=== PATIENT | male | born 1960 | race Caucasian/White ===

== ENCOUNTER 2024-03-11 20:00 | Emergency (ER) | payer BC, SELFPAY ==
[2024-03-11 20:06] VITALS: BP 195/106
[2024-03-11 20:25] LABS: % Basophils 0.7 % (0-2); % Eosinophils 4.9 % (0-6); % Immature Granulocytes 0.4 % (0-0.5); % Lymphocytes 23.3 % (20.5-51.1); % Neutrophils 63.7 % (42.2-75.2); Absolute Basophils 0.1 10^3/uL (0-0.2); Absolute Eosinophils 0.7 10^3/uL (0-0.7); Absolute Immature Granulocytes 0.1 10^3/uL (0-0.05); Absolute Lymphocytes 3.2 10^3/uL (1.2-3.4); Absolute Neutrophils 8.8 10^3/uL (1.4-6.5); Hematocrit 45.2 % (39.0-52.0); Hemoglobin 15.8 g/dL (13.0-18.0); Mean Corpuscular Hgb 31.7 pg (27.0-31.0); Mean Corpuscular Volume 90.6 fL (80.0-94.0); Mean Platelet Volume 10.1 fL (7.4-10.4); Nucleated Red Blood Cells % 0 % (-); Platelet Count 329 10^3/uL (130-400); Red Blood Cell Count 4.99 10^6/uL (4.70-6.10); Red Cell Dist. Width 13.2 % (11.5-14.5); White Blood Cell Count 13.8 10^3/uL (4.8-10.8)
[2024-03-11 20:40] LABS: ALT (SGPT) 72 U/L (0-50); AST (SGOT) 47 U/L (17-59); Alkaline Phosphatase 80 U/L (38-126); Blood Urea Nitrogen 13 mg/dl (9-20); Calcium 10.2 mg/dl (8.4-10.2); Carbon Dioxide 24 mmol/L (22-30); Chloride 101 mmol/L (98-107); Glucose 97 mg/dl (70-99); Potassium 4.4 mmol/L (3.5-5.1); Sodium 139 mmol/L (135-145); Total Bilirubin 0.7 mg/dl (0.2-1.3); Total Protein 8.1 g/dl (6.3-8.2); eGFR > 60.00
[2024-03-11 20:46] LABS: Troponin I < 0.012 ng/ml
[2024-03-11 22:24] VITALS: BP 160/85
[2024-03-11 23:00] VITALS: BP 139/75
--- NOTE | 2024-03-11 23:30 | ED.GENMED ---
History of Present Illness
<Kylie Leiva MD, Resident - Last Filed: 03/12/24 00:01>
General
Chief Complaint: Chest Pain
Time Seen by Provider: 03/11/24 22:35
History of Present Illness
History of Present Illness:
63 y/o male with pmhx of HTN, GERD, HLP, Dm on metformin presenting to the ED with chest pain. Patient notes pain started yesterday and is located in the midsternal region. Notes radiates to the left side, is not associated with meals or position.
Patient describes the pain as tightness. Is not associated with SOB, nausea, vomiting. Denies fever, abdominal pain, urinary symptoms, sick contacts. Patient recently flew to [place] for [employer]. Took pepcin for pain with relief. Notes his PCP
recently switched his BP medication from Lisinopril HCTZ to Lisinopril due to concern for electrolyte abnormalities. Patient states his pain is similar to his GERD pain and was not sure if it was GERD or a cardiac pain this time. Patient also notes
that he has had elevated WBCs on his outside blood work and is being followed for that by his PCP.
Past History
<Kylie Leiva MD, Resident - Last Filed: 03/12/24 00:01>
Past History
ED Past Medical History: GERD, HTN, Hypercholesterolemia, NIDDM and Other (diverticulitis)
ED Past Surgical History: Bowel resection (Partial colectomy for diverticulitis) and Other (Myringotomy tubes for recurrent otitis media)
Social History
Tobacco: Former smoker
Alcohol: None
Drug: None
Personal:
Living: with family
Employment: Employed
Family History
Family History: Early CAD and CAD
Review of Systems
<Kylie Leiva MD, Resident - Last Filed: 03/12/24 00:01>
Review of Systems
Constitutional: Reports no symptoms
EENT: Reports no symptoms
Respiratory: Reports no symptoms
Cardiac: Reports chest pain
ABD/GI: Reports no symptoms
: Reports no symptoms
Musculoskeletal: Reports no symptoms
Skin: Reports no symptoms
Neurological: Reports no symptoms
Endocrine: Reports no symptoms
Hematologic/Lymphatic: Reports no symptoms
Psychiatric: Reports no symptoms
Phy Exam
<Kylie Leiva MD, Resident - Last Filed: 03/12/24 00:01>
Physical Exam
Physical Exam:
GENERAL: Alert, awake, in no apparent distress.
EYE: Pupils equal and reactive.
NECK: Supple, no significant adenopathy.
ENT: o/p clr, mmm.
CARDIAC: Regular rate and rhythm. Mild systolic murmur.
LUNGS: Clear breath sounds bilaterally, no acute respiratory distress, no wheezes/rales/rhonchi
ABDOMEN: Soft, without focal tenderness, no r/g, no cvat.
NEUROLOGICAL: Alert and oriented, no focal neuro deficits
SKIN: Warm and dry, skin intact.
MUSCULOSKELETAL: No edema, well perfused.
PSYCH: Normal and appropriate interaction.
Scores
<Kylie Leiva MD, Resident - Last Filed: 03/12/24 00:01>
Heart Score for Chest Pain Patients
STEMI patient?: No
History: Slightly or Non-Suspicious
ECG: Normal
Age: >45 - <65 years
Risk Factors: 1 or 2 Risk Factors
Troponin: </= Normal Limit
Heart Score for Chest Pain Patients: 2
Heart Score Risk: 2.5% MACE over next 6 weeks
<Juliette Prescott DO - Last Filed: 03/12/24 01:19>
Heart Score for Chest Pain Patients
Age: >45 - <65 years
Risk Factors: >/= 3 Risk Factors or History of CAD
Heart Score for Chest Pain Patients: 3
Heart Score Risk: 2.5% MACE over next 6 weeks
Course
<Kylie Leiva MD, Resident - Last Filed: 03/12/24 00:01>
Orders/Labs/Results
Orders:
Orders
03/11/24 20:00
EKG [Electrocardiogram (*1)] Urgent
Reason for Study: Chest Pain
EKG- Treatment ONCE
03/11/24 20:07
Cardiac Monitoring- Treatment ONCE
IV Insert/Care/Rem.- Treatment PRN
CR Chest - 2 Views Urgent
Comment:
Reason For Exam: respiratory distress
O2 Therapy [RESP] Urgent
Titrate/Wean O2 to maintain O2 sat greater than (%): 93
Special Instructions: TO MAINTAIN CONTINUOUS O2 SATS >/= 93%
Pulse Ox/cont/shift [RESP] Urgent
Quantity: 1
Special Instructions: continuous pulse ox
03/11/24 20:14
Complete Blood Count/With Diff Urgent
Comprehensive Metabolic Panel Urgent
Troponin I Urgent
03/11/24 23:53
Mag Hydrox/Al Hydrox/Simeth [Maalox] 30 ml Phenobarb/Hyoscy/Atropine/Scop [] 10 ml Viscous Lidocaine 2% [Xylocaine Viscous Cup] 10 ml PO NOW
03/12/24 00:07
Mag Hydrox/Al Hydrox/Simeth [Maalox] 30 ml .ROUTE .STK-MED ONE
Phenobarb/Hyoscy/Atropine/Scop [] 10 ml .ROUTE .STK-MED ONE
Viscous Lidocaine 2% [Xylocaine Viscous Cup] 15 ml .ROUTE .STK-MED ONE
03/12/24 00:14
Pantoprazole [Protonix] 40 mg PO NOW STA
Sucralfate Suspension [Carafate Suspension] 1 gm PO NOW STA
Abnormal Lab Results
03/11/24
20:14
WBC 13.8 H 10^3/uL
(4.8-10.8)
MCH 31.7 H pg
(27.0-31.0)
Abs Immat Gran (auto) 0.1 H 10^3/uL
(0-0.05)
Absolute Neuts (auto) 8.8 H 10^3/uL
(1.4-6.5)
Absolute Monos (auto) 1.0 H 10^3/uL
(0.1-0.6)
ALT 72 H U/L
(0-50)
03/11/24 20:14
03/11/24 20:14
Vital Signs
Initial and Last Documented VS:
Initial Vital Signs
Temp Pulse Resp BP Pulse Ox
98.1 F 84 19 195/106 99
03/11/24 20:06 03/11/24 20:06 03/11/24 20:06 03/11/24 20:06 03/11/24 20:06
Last Documented Vital Signs
Temp Pulse Resp BP Pulse Ox
98.1 F 63 12 146/84 95
03/11/24 20:06 03/12/24 01:00 03/12/24 01:00 03/12/24 01:00 03/12/24 01:00
<Juliette Prescott, DO - Last Filed: 03/12/24 01:19>
Orders/Labs/Results
Orders:
Orders
03/11/24 20:00
EKG [Electrocardiogram (*1)] Urgent
Reason for Study: Chest Pain
EKG- Treatment ONCE
03/11/24 20:07
Cardiac Monitoring- Treatment ONCE
IV Insert/Care/Rem.- Treatment PRN
CR Chest - 2 Views Urgent
Comment:
Reason For Exam: respiratory distress
O2 Therapy [RESP] Urgent
Titrate/Wean O2 to maintain O2 sat greater than (%): 93
Special Instructions: TO MAINTAIN CONTINUOUS O2 SATS >/= 93%
Pulse Ox/cont/shift [RESP] Urgent
Quantity: 1
Special Instructions: continuous pulse ox
03/11/24 20:14
Complete Blood Count/With Diff Urgent
Comprehensive Metabolic Panel Urgent
Troponin I Urgent
03/11/24 23:53
Mag Hydrox/Al Hydrox/Simeth [Maalox] 30 ml Phenobarb/Hyoscy/Atropine/Scop [] 10 ml Viscous Lidocaine 2% [Xylocaine Viscous Cup] 10 ml PO NOW
03/12/24 00:07
Mag Hydrox/Al Hydrox/Simeth [Maalox] 30 ml .ROUTE .STK-MED ONE
Phenobarb/Hyoscy/Atropine/Scop [] 10 ml .ROUTE .STK-MED ONE
Viscous Lidocaine 2% [Xylocaine Viscous Cup] 15 ml .ROUTE .STK-MED ONE
03/12/24 00:14
Pantoprazole [Protonix] 40 mg PO NOW STA
Sucralfate Suspension [Carafate Suspension] 1 gm PO NOW STA
Abnormal Lab Results
03/11/24
20:14
WBC 13.8 H 10^3/uL
(4.8-10.8)
MCH 31.7 H pg
(27.0-31.0)
Abs Immat Gran (auto) 0.1 H 10^3/uL
(0-0.05)
Absolute Neuts (auto) 8.8 H 10^3/uL
(1.4-6.5)
Absolute Monos (auto) 1.0 H 10^3/uL
(0.1-0.6)
ALT 72 H U/L
(0-50)
03/11/24 20:14
03/11/24 20:14
Vital Signs
Initial and Last Documented VS:
Initial Vital Signs
Temp Pulse Resp BP Pulse Ox
98.1 F 84 19 195/106 99
03/11/24 20:06 03/11/24 20:06 03/11/24 20:06 03/11/24 20:06 03/11/24 20:06
Last Documented Vital Signs
Temp Pulse Resp BP Pulse Ox
98.1 F 63 12 146/84 95
03/11/24 20:06 03/12/24 01:00 03/12/24 01:00 03/12/24 01:00 03/12/24 01:00
<Kylie Leiva MD, Resident - Last Filed: 03/12/24 00:01>
MDM/Problems Addressed
Differential Diagnosis Includes:
ACS
Pneumothorax
PE
Pneumonia
Dyspepsia
MDM/Problems Addressed:
- EKG, Troponin
- CBC, CMP
- Chest x-ray
<Kylie Leiva MD, Resident - Last Filed: 03/12/24 00:01>
*Critical Care Note
Total Time (30-74mins, 75-104mins- exclusive of procedures): Not Applicable
ED Attending Note
<Kylie Leiva MD, Resident - Last Filed: 03/12/24 00:01>
-
Portions of this chart may have been created with voice recognition software.� Occasional wrong word or��sound alike� substitutions may have occurred due to the inherent limitations of voice recognition software.
<Juliette Prescott DO - Last Filed: 03/12/24 01:19>
ED Attending Note
Patient seen and examined by attending physician: Yes
I performed a history and physical exam of patient and discussed management with resident, I reviewed resident's note and agree with documented findings and plan of care.: Yes
ED Attending Note:
This is a 63-year-old gentleman who has history of hypertension, hyperlipidemia, aui-zzartxs-dopwpeeer diabetes, GERD who complains of lower substernal chest pain that began yesterday, persistent, temporized with Pepcid. He does admit the chest
pain feels similar to previous episodes of GERD but was worried that it may be heart related and thus presented to the ED for further evaluation.
He follows with cardiology, Dr. Swann and underwent unremarkable nuclear stress test July 2022, echocardiogram August 2022 showing mildly dilated aortic root, trace AR, trace TR, overall similar and unchanged from previous echo 2018.
He follows regularly with PCP with appointment last week. BP reportedly within normal limits at that time. Lisinopril HCTZ was changed to lisinopril only due to reported electrolyte abnormality.
Patient has been monitoring his blood pressure at home and notes blood pressure elevated since yesterday 150s to 160s systolic.
He has had no radiation of the chest pain, no other associated symptoms, no shortness of breath, no diaphoresis, no palpitations, no aggravating factors. Temporized with Pepcid as above.
He does admit to some dietary indiscretion over the holidays.
63-year-old gentleman appears his stated age, bright and alert, pleasant, appears in no acute distress.
Heart is regular rate and rhythm. No murmur no rub.
Lungs are clear to auscultation. No respiratory distress.
Abdomen is rotund, soft, nondistended, nontender, no organomegaly.
EKG is unremarkable/within normal limits. Chest x-ray is unremarkable.
Labs are unremarkable save for minimally elevated ALT of 72. Mildly elevated white blood cell count of 13.8. Patient notes similarly mildly elevated white blood cell count sporadically. He has not had a fever nor chills, no URI symptoms.
Troponin is negative. With ongoing chest pain since yesterday, unremarkable EKG and unremarkable troponin, ACS is unlikely.
It is reassuring that chest pain is temporized with Pepcid and I do suspect exacerbation of GERD.
Her plan was to trial a GI cocktail but patient has history of adverse reaction to magnesium which she took in a colon prep tablet which caused swelling. As such we will abandon the GI cocktail and will trial Carafate along with a dose of Protonix.
Noted to have elevated blood pressure initially 195/106, has improved to 139/75.
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 Blanton.
Return precautions discussed.
Discharge Plan
Departure
Patient Disposition: Home (Routine Discharge)
Date of Disposition: 03/12/24
Time of Disposition: 01:18
Patient with high blood pressure during this ER visit?: No
Condition: Good
Discharge Problem:
acute GERD, Nonspecific chest pain
Instructions: Acid Reflux and GERD in Adults (DC), Chest Pain CBC Follow Up
Prescriptions:
New
pantoprazole [Protonix] 40 mg tablet,delayed release (DR/EC)
40 mg PO DAILY Qty: 30 1RF
No Action
aspirin 81 MG tablet,chewable
81 mg PO HS
Flovent Diskus 50 MCG blister with device
2 inh inhalation DAILY
atorvastatin 40 mg Tablet
40 mg PO HS
metformin 500 mg Tablet
500 mg PO BID
pantoprazole 40 mg Tablet,Delayed Release (Dr/Ec)
40 mg PO DAILY
Patient Comments:
new Rx, will start 06/01/2022
naproxen sodium [Aleve] 220 mg Tablet
440 mg PO PRN PRN (Reason: pain)
lisinopril-hydrochlorothiazide 20-25 mg Tablet
1 tab PO DAILY
Men's Daily
1 tab PO DAILY
Referrals:
Odilon Mcfaralnd MD [Family Provider] - Follow up in 1 week (BP recheck. Recheck of CP. Daily protonix initiated)
Interventions
Interventions:
*Risk Screen - Suicide Last Done: 03/11/24 20:06
*General Assessment Last Done: 03/11/24 23:32
*Neglect/Abuse Screening Last Done: 03/11/24 20:06
ED- Fall Risk Assessment Last Done: 03/11/24 21:58
*ED COVID-19 Vaccine History Last Done: 03/11/24 23:32
*Nursing Disposition Last Done: 03/12/24 00:30
ED- Cardiac Assessment Last Done: 03/11/24 21:58
Discharge Date and Time
Print Language: INDONESIAN
[2024-03-11 23:31] VITALS: BMI 34.3
[2024-03-12] VITALS: BP 156/81
[2024-03-12] MEDS: CARAFATE SUSPENSION 1 GM PO (00:23)
[2024-03-12] MEDS: PROTONIX 40 MG PO (00:23)
[2024-03-12 01:00] VITALS: BP 146/84
== END 2024-03-12 01:21 | disposition home or self-care (01) ==
LOC: EMR 20:00
PROVIDERS: Emergency Medicine; EMERGENCY PHYSICIAN Emergency Medicine; FAMILY PHYSICIAN Family Medicine
DX: K21.9 Gastro-esophageal reflux disease without esophagitis (principal); R07.89 Other chest pain; E78.00 Pure hypercholesterolemia, unspecified; I10 Essential (primary) hypertension; Z87.891 Personal history of nicotine dependence
CPT/HCPCS: 99285; 71046; 80053; 84484; 85025; 93005

== ENCOUNTER 2024-07-10 09:19 | Day surgery (SDC) | payer BC, SELFPAY ==
[2024-07-10] VITALS (12 sets, daily range): BP systolic 99–173; BP diastolic 79–99; BMI 32.5
[2024-07-10 09:57] LABS: Glucose - Point of Care 128 mg/dl (70-99)
[2024-07-10 13:37] LABS: ACT-LR - POC 374 Seconds (116-155)
[2024-07-10 14:00] LABS: ACT-LR - POC 356 Seconds (116-155)
[2024-07-10 14:45] LABS: ACT-LR - POC 284 Seconds (116-155)
--- NOTE | 2024-07-10 14:49 | ITS.CL.ANGIO ---
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
Angioplasty
Procedure Report:
CARDIAC CATHETERIZATION REPORT
Date of Procedure: 07/10/2024
Referring: Mikey Escobedo M.D.
INDICATION: Accelerating angina, known prior coronary artery disease.
PROCEDURE:
1. Left heart catheterization
2. Coronary angiography.
3. Successful CSI atherectomy of the mid and distal RCA.
4. Successful PCI of the distal RCA.
5. Successful PCI of the mid RCA.
A total of 92 minutes of procedural/moderate sedation was utilized. An independent medical operations supervisor was present to assist with and help manage the patient's level of consciousness and physiologic status.
ACCESS:
1. 6 Swazi right radial artery using a modified Seldinger technique.
CATHETERS:
1. 5 Swazi JR4.
2. 5 Swazi JL 3.5.
3. 6 Swazi AL-1 guiding catheter.
HEMODYNAMIC DATA
Weight (kg): 90.7
AO (s/d/x, mmHg): 111/66/86
LV (s/x mmHg): 121/15
LEFT VENTRICULOGRAPHY: Not performed.
CORONARY ANGIOGRAPHY
Dominance: Right.
Left Main: Normal size, trifurcating vessel. There is no coronary artery disease.
LAD: Normal size vessel giving rise to 1 significant diagonal. There are minor luminal irregularities.
Ramus: Small size, vestigial vessel that is less than 1 mm in diameter.
Circumflex: Normal size, nondominant vessel that is essentially a single large obtuse marginal supplying the entirety of the lateral wall.
RCA: Large size, dominant vessel with a significant posterolateral arcade and an anterior origin. There is a densely calcified, 90% mid RCA lesion. There is a second, 80%, densely calcified lesion in the distal RCA proximal to the origin of the
RPDA.
INTERVENTION(S)
1. Successful CSI of the mid and distal RCA.
2. Successful PCI of the mid and distal RCA (overlapping Medtronic [place] 3.0 x 38 RAYMON, 3.0 x 22 RAYMON, postdilated with a 3.25 NC balloon) with reduction in stenosis to 0%, maintaining LEILA-3 flow.
Narrative:
The decision was made to proceed with percutaneous coronary intervention. The diagnostic catheter was removed over a wire and a 6Fr AL-1 guiding catheter was advanced to the aortic root and seated in the right coronary artery. Additional heparin was
given and a Power Turn Flex wire was advanced into the RPDA with some difficulty.
We attempted to pass a 2.0 x 12 semicompliant balloon, however we could not pass this balloon beyond the 90% mid RCA lesion. We attempted to support the balloon with a GuideLiner but still could not advance the balloon. The 2.0 x 12 semicompliant
balloon was withdrawn and a 1.5 x 12 semicompliant balloon was advanced. Unfortunately, this balloon would not cross the lesion either. Given the dense calcification of the lesion, it was very clear that plaque modification would be necessary for
successful PCI. A mini microcatheter was advanced over the power turn flex using a wire pinning technique and exchanged for a Viper wire which was advanced into the distal RCA/RPDA. The microcatheter was withdrawn.
The CSI orbital atherectomy device was prepped on the back table and flushed with Viper slide. The device was loaded onto the Viper wire and brought up to the level of the catheter. An out of body test was successful. The CSI device was advanced
over the Viper wire up to the level of the coronary artery. Once the crown was positioned in place, orbital atherectomy was performed in the standard fashion with slow smooth passes. Once the crown had passed through the first lesion, we advanced
the CSI device slowly and smoothly so that the distal lesion was also sanded. After each pass, the patient was given nitroglycerin 100 mcg intracoronary. Brief angiography was performed to rule out dissection and perforation. The process was
repeated 3 times. Ultimately, the crown passed through the densely calcified lesions with relative ease. The CSI device was withdrawn over the Viper wire.
The mini catheter was readvanced over the Viper wire which was withdrawn and exchanged for the power turn flex wire using a wire pinning technique. The 80% distal RCA lesion was predilated with a 2.0 x 12 semi-compliant balloon to 12 rosie. The 90%
mid RCA lesion was dilated to 14 rosie. In an abundance of caution, we elected to further predilate with a larger noncompliant balloon. A 3.0 x 15 noncompliant balloon was advanced. Both the distal and mid RCA lesions were predilated to 12 rosie.
The non-compliant balloon was removed and a Medtronic [place] 3.0 x 38 drug-eluting stent was advanced. Unfortunately, the stent would not pass beyond the mid RCA lesion. A 6 Swazi guide liner was advanced over a 3.0 NC balloon into the
distal RCA. The balloon was withdrawn and the stent was readvanced, this time passing easily into the distal RCA. Meticulous care was taken while positioning the stent, ensuring that the distal lesion was covered and as much of the proximal lesion
was covered. When we were satisfied with our position, the stent was deployed at 12 atmospheres. The stent balloon was removed. Angiography clearly demonstrated that we would need to extend the stented segment to reach a normal section of artery.
A Medtronic [place] 3.0 x 22 drug-eluting stent was advanced. Once again, meticulous care was taken while positioning the stent, ensuring that the proximal stent would overlap with the more distal stent and cover the atherosclerotic portion
of the artery. When we were satisfied with our position, the stent was deployed at 12 rosie. The stent balloon was withdrawn. A 3.25 x 15 noncompliant balloon was advanced into the stent and the stent was postdilated to 18 atmospheres. Angiography
was performed in orthogonal views, confirming good stent expansion and an excellent angiographic result. Of note, the patient did have occlusion of their small RV marginal branch. The coronary wire was withdrawn and the guide was disengaged from
the artery. The catheter was removed over a standard J-wire.
Closure Device: Vascular band.
Radiation (mGy): 920
DAP (cm2.Gy): 50.347
Fluoroscopy time (minutes): 25.4
CONCLUSIONS
1. Right dominant circulation with luminal irregularities in the LAD, and anterior origin of the right coronary artery, a densely calcified 90% mid RCA lesion and an 80% densely calcified distal RCA lesion, status post successful CSI atherectomy
and PCI (overlapping Medtronic [place] 3.0 x 38 RAYMON, 3.0 x 22 RAYMON, postdilated with a 3.25 NC balloon) with reduction in both stenoses to 0%, maintaining LEILA-3 flow in the RCA but occluding the RV marginal branch.
2. Mildly elevated filling pressures (LVEDP 15 mmHg at 90.7 kg).
3. Probably mild aortic valve stenosis.
RECOMMENDATIONS:
1. Expectant management after cardiac catheterization via right radial approach.
2. Limited weight bearing on the right wrist for one week.
3. Dual antiplatelet therapy with aspirin and ticagrelor for at least 12 months, followed by aspirin indefinitely.
4. Aggressive secondary prevention with high-dose, high potency statin. Goal LDL <55.
5. OMT/GDMT as hemodynamics will tolerate.
6. Echocardiogram to assess aortic valve severity.
7. Referral to cardiac rehab.
Copy to: Mikey Escobedo M.D., Odilon Mcfarland M.D.
Surya Donato DO, FACC, FACP
[2024-07-10 15:09] LABS: ACT-LR - POC > 397 Seconds (116-155)
[2024-07-10] MEDS: NSS 1000 IV (15:41)
--- NOTE | 2024-07-10 16:14 | CM ---
priced brilinta with pts perscript plan- [facility] (id- [id number]- [phone]) his copay is $265./mo. there is no deductible but he does have a 7500 OOP to pay down which includes medical and pharm. he is agreeable to this cost. i explained to
him that Brilinta went generic 06/30 but the cost has not reflected that yet. also it not avail in good rx yet. pt says he is agreeable to the cost of brilinta. soto Chung aware.
[2024-07-10 16:24] LABS: Glucose - Point of Care 140 mg/dl (70-99)
--- NOTE | 2024-07-10 16:25 | CM ---
CM following for DC planning needs.
Met w/ patient at bedside to complete initial assessment.
Pt. informs that he resides in a private home alone. He is functionally indep. w/ ADLs, mobility without the use of any assisted device. Pt. has CPAP at home, which he does not use.
Pt. has RX plan and uses [facility] in [place] for RX needs.
Anticipated DC plan is for home, no needs.
--- NOTE | 2024-07-10 18:36 | PTCARENOTE ---
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 Pt declined stronger pain medication. Pt stated it felt much
better after 3 hours and only a 3/10. Right radial band in place removed without difficulty per protocol. No sign of bleeding or hematoma. Pt voiding without difficulty. Telemetry shows sinus rhythm with borderline first degree AV block, rare
bigeminy noted.
[2024-07-10] MEDS: COREG 12.5 MG PO (20:20)
[2024-07-10] MEDS: LIPITOR 40 MG PO (20:20)
[2024-07-10 22:46] LABS: Glucose - Point of Care 103 mg/dl (70-99)
[2024-07-11 00:56] VITALS: BP 133/75
[2024-07-11 01:08] LABS: Glucose - Point of Care 103 mg/dl (70-99)
[2024-07-11 03:27] VITALS: BP 116/64
[2024-07-11 03:47] VITALS: BMI 31.6
[2024-07-11 04:05] LABS: Hematocrit 44.5 % (39.0-52.0); Hemoglobin 15.9 g/dL (13.0-18.0); Mean Corp Hgb Conc. 35.7 g/dL (33.0-37.0); Mean Corpuscular Hgb 31.1 pg (27.0-31.0); Mean Corpuscular Volume 86.9 fL (80.0-94.0); Mean Platelet Volume 10.8 fL (7.4-10.4); Platelet Count 293 10^3/uL (130-400); Red Blood Cell Count 5.12 10^6/uL (4.70-6.10); Red Cell Dist. Width 12.8 % (11.5-14.5); White Blood Cell Count 12.6 10^3/uL (4.8-10.8)
[2024-07-11 04:26] LABS: Blood Urea Nitrogen 13 mg/dl (9-20); Calcium 10.2 mg/dl (8.4-10.2); Carbon Dioxide 26 mmol/L (22-30); Chloride 104 mmol/L (98-107); Estimated Creatinine Clearance 97 ml/min; Glucose 102 mg/dl (70-99); HDL Cholesterol 33 mg/dl; LDL Cholesterol, Calculated 37 mg/dl; Potassium 3.9 mmol/L (3.5-5.1); Sodium 141 mmol/L (135-145); Total Cholesterol 110 mg/dl (50-199); Triglyceride 201 mg/dl (10-149); Very Low Density Lipoprotein 40 mg/dl (0-30); eGFR > 60.00
--- NOTE | 2024-07-11 06:17 | PTCARENOTE ---
Pt NSR with a few short episode of bigeminy and 6 beat of VTach. Pt asymptomatic during this time. Chest pain is not consistent, comes and goes per patient. Pt instructed to notify nurse if symptoms changes or worsening. Safety measures in place
[2024-07-11 07:57] VITALS: BP 127/72
[2024-07-11 08:01] LABS: Glucose - Point of Care 136 mg/dl (70-99)
[2024-07-11] MEDS: PROTONIX 40 MG PO (08:21)
[2024-07-11] MEDS: ZESTRIL 40 MG PO (08:22)
[2024-07-11] MEDS: COREG 12.5 MG PO (08:22)
[2024-07-11] MEDS: NORVASC 10 MG PO (08:23)
[2024-07-11] MEDS: LOW STRENGTH ASPIRIN 81 MG PO (08:23)
[2024-07-11] MEDS: BRILINTA 90 MG PO (08:23)
--- NOTE | 2024-07-11 08:59 | W.PN.CD ---
Today's Communication / Plan
-
DAPT with aspirin and ticagrelor for 12 months, followed by aspirin indefinitely.
Update echocardiogram (outpatient).
Increase carvedilol to 25 mg BID.
Decrease lisinopril to 20 mg daily.
Stable for outpatient follow up.
Discharge.
Impression / Plan
-
Impression/Plan: 63 y/o male with HTN, HLD and NIDDM admitted after elective cardiac catheterization for accelerating angina showed densely calcified mid/distal RCA disease requiring orbital atherectomy and PCI and resulting in the occlusion of a
small RV marginal branch.
#CAD/Accelerating Angina
-Acute.
-Cardiac catheterization showed densely calcified 90% mRCA and 80% dRCA lesions.
-S/P orbital atherectomy and PCI (overlapping Medtronic [place]oco [place] 3.0 x 38 RAYMON, 3.0 x 22 RAYMON, post dilated with a 3.25 NCB throughout) with reduction in both stenoses to 0% maintaining LEILA III flow.
-Small RV marginal branch occluded by stent.
-DAPT with aspirin and ticagrelor for at least 12 months, followed by aspirin indefinitely.
-OMT/GDMT as hemodynamics will tolerate - amlodipine, carvedilol.
-Aggressive secondary prevention with atorvastatin 40 mg daily. Goal LDL < 55.
#Bigeminy
-Symptomatic.
-Increase carvedilol to 25 mg BID.
#
-New diagnosis.
-Suggested by cath - mild at worst.
-Update echocardiogram. This can be done as an outpatient.
#HTN
-Chronic, stable.
-Continue amlodipine.
-In light of bigeminy, increase carvedilol to 25 mg BID and decrease lisinopril to 20 mg daily.
#HLD
-Chronic, stable.
-Total cholesterol = 110, LDL = 37, HDL = 33, Triglycerides = 201.
-Continue atorvastatin 40 mg daily, ezetimibe 10 mg daily (started on 07/07/2024).
#NIDDM
-Chronic, stable.
-Restart metformin.
#PPx
-Ambulation for DVT/VTE.
-Home pantoprazole.
#Dispo
-Stable for outpatient follow up.
-Discharge.
Subjective/Interval History:
PCI of the RCA yesterday.
Small RV branch was occluded.
Feels well.
Brief (6 beats) of NSVT on telemetry.
He reports symptomatic ventricular bigeminy.
DATA:
Cardiac Catheterization/PCI, 07/10/2024:
CONCLUSIONS
1. Right dominant circulation with luminal irregularities in the LAD, and anterior origin of the right coronary artery, a densely calcified 90% mid RCA lesion and an 80% densely calcified distal RCA lesion, status post successful CSI atherectomy
and PCI (overlapping Medtronic [place] 3.0 x 38 RAYMON, 3.0 x 22 RAYMON, postdilated with a 3.25 NC balloon) with reduction in both stenoses to 0%, maintaining LEILA-3 flow in the RCA but occluding the RV marginal branch.
2. Mildly elevated filling pressures (LVEDP 15 mmHg at 90.7 kg).
3. Probably mild aortic valve stenosis.
Physical Exam
Vital Signs/Labs
Vital Signs
Temp Pulse Resp BP Pulse Ox
36.9 C 63 18 116/64 98
07/11/24 07:55 07/11/24 05:00 07/11/24 07:55 07/11/24 03:27 07/11/24 07:55
07/09/24 07/10/24 07/11/24
11:59 11:59 11:59
Actual Weight 91.17 kg 88.8 kg
07/11/24 03:34
07/11/24 03:34
Triglycerides 201 mg/dl (10-149) H 07/11/24 03:34
LDL Cholesterol, Calc 37 mg/dl 04/12/25 03:34
VLDL Cholesterol, Calc 40 mg/dl (0-30) H 07/11/24 03:34
HDL Cholesterol 33 mg/dl 07/11/24 03:34
Physical Exam
Constitutional: No acute distress and Comfortable
EENT: Anicteric and Moist mucous membranes
Cardiovascular: Rhythm & rate is regular, Pedal edema is absent, Systolic murmur present and S1S2 is normal
Respiratory: Respiratory effort normal, Lungs clear to auscul., Wheeze Absent, Crackles Absent and Rhonchi Absent
GI: Soft, Distention absent, Flat, Non tender and Normal bowel sounds
Neuro/Psych: AO x 3
Other: Cath Site (Right radial access site is C/D/I.)
Data Reviewed
-
Date of Service: July 11, 2024
Medical Decision Making: Reviewed Test Results, Independent Historian Assessment and Test Interpretation
EKG: Tracing Personally Visualized and interpreted and Report Reviewed by me
X-Ray/CT/US/MRI/NUC/PET: Image Personally Visualized and interpreted and Report Reviewed by me
Medical Tests (PFT, Pathology etc): Image Personally Visualized and interpreted and Report Reviewed by me
Labs: Labs Reviewed by me
Old Records: Reviewed
--- NOTE | 2024-07-11 09:40 | W.DS.TRANS ---
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
-
Discharge Instructions:
Discharge Diagnosis/Procedures Coronary artery disease s/p angioplasty,
atherectomy and PCI RCA x2
Diet Low Cholesterol,Diabetic, Carb Controlled
Activity Other activity
Additional Activity activity restrictions as noted on attached page
Driving Restrictions No driving for 24 hours
Bathing Restrictions OK to Shower
Others Tests echo- office will contact you to arrange
Other Services Cardiac Rehab
Instructions:
Stand-Alone Forms: DC Instructions- Cath/EP Lab
Changes to Home Medications: Yes
Discharge Medications:
DC Medications w/original date entered in [employer]
aspirin 81 mg chewable tablet 81 mg PO HS 03/01/11
fluticasone propionate 50 mcg/actuation blister powder for inhalation (Flovent Diskus) 2 inh inhalation DAILY 01/08/18
Men's Daily 1 tab PO DAILY 06/01/22
atorvastatin 40 mg tablet 40 mg PO HS 06/01/22
metformin 500 mg tablet 500 mg PO BID 06/01/22
pantoprazole 40 mg tablet,delayed release (Protonix) 40 mg PO DAILY #30 tabs 03/12/24
amlodipine 10 mg tablet 10 mg PO DAILY 07/10/24
ticagrelor 90 mg tablet (Brilinta) 90 mg PO BID #60 tabs 07/10/24
triamcinolone acetonide 0.1 % topical cream 1 applic topical BID 07/10/24
carvedilol 25 mg tablet (Coreg) 25 mg PO BID #60 tabs 07/11/24
lisinopril 20 mg tablet 20 mg PO DAILY #30 tabs 07/11/24
nitroglycerin 0.4 mg sublingual tablet (Nitrostat) 0.4 mg sublingual Q5M PRN chest pain #25 tabs 07/11/24
Home Medication Changes
Coreg dose increase, lisinopril dose decreased, nitro PRN added, Brilinta added
Pending Results: Yes
Additional Pending Results:
[id number]
--- NOTE | 2024-07-11 09:56 | W.PN.UPDATE ---
Update Note
Progress Note Update
Brilinta was not available at patient's usual [facility] pharmacy today. Nursing called pharmacy and [facility] in [place] ([address]) has a month supply available- I sent prescription in for 30 days for patient to this pharmacy for Brilinta 90 mg PO BID.
Then he will go to his usual pharmacy for refills.
--- NOTE | 2024-07-11 10:09 | PTCARENOTE ---
Pt OOB ambulating in room, denies pain, denies SOB. R radial dsg intact with small amt old pink drainage. D/C instructions reviewed with Pt, he expressed understanding. Pt received text on his phone that his pharmacy, [facility] in [place], does not have
Brilinta. Call made to [facility] in [place] ([address]) they do have a 30 day supply of Brilinta. Radha Chase sent script to [facility] after speaking with Pt.
[2024-07-11 11:36] VITALS: BP 126/77
[2024-07-11 13:54] LABS: Glycohemoglobin (HgbA1c) 6.6 % (4.0-5.6)
[2024-07-13 19:57] LABS: Hepatitis C Antibody Negative (Negative)
== END 2024-07-11 11:55 | disposition home or self-care (01) ==
LOC: CATH 09:19
PROVIDERS: Nurse Practitioner Adult Health; ATTENDING PHYSICIAN Internal Medicine Cardiovascular Disease; FAMILY PHYSICIAN Family Medicine; OTHER PHYSICIAN Internal Medicine
DX: I25.110 Atherosclerotic heart disease of native coronary artery with unstable angina pectoris (principal); Z95.5 Presence of coronary angioplasty implant and graft; I10 Essential (primary) hypertension; E78.5 Hyperlipidemia, unspecified; E11.9 Type 2 diabetes mellitus without complications; K21.9 Gastro-esophageal reflux disease without esophagitis; G47.33 Obstructive sleep apnea (adult) (pediatric); I49.3 Ventricular premature depolarization; I35.0 Nonrheumatic aortic (valve) stenosis; E66.9 Obesity, unspecified; K57.90 Diverticulosis of intestine, part unspecified, without perforation or abscess without bleeding; I47.20 Ventricular tachycardia, unspecified; Z79.82 Long term (current) use of aspirin; Z79.899 Other long term (current) drug therapy; Z79.02 Long term (current) use of antithrombotics/antiplatelets; Z79.890 Hormone replacement therapy
CPT/HCPCS: 99152; 99153; 80048; 80061; 82962; 83036; 85027; 85347; 86803; 93005; 93458; C1724; C1725; C1769; C1874; C1887; C1894; C9602; Q9967

== ENCOUNTER → 2024-07-23 15:18 | Outpatient (REF) | payer BC, SELFPAY | LOC: RCS 15:18 | PROVIDERS: ATTENDING PHYSICIAN Internal Medicine; FAMILY PHYSICIAN Family Medicine | DX: I77.810 Thoracic aortic ectasia (principal); I20.0 Unstable angina; I49.3 Ventricular premature depolarization; I10 Essential (primary) hypertension | CPT/HCPCS: 93306 ==

== ENCOUNTER 2024-08-27 08:59 | Outpatient (RCR) | payer BC, SELFPAY ==
[2024-08-07 14:27] LABS: Glucose - Point of Care 128 mg/dl (70-99)
[2024-08-07 15:04] LABS: Glucose - Point of Care 151 mg/dl (70-99)
[2024-08-11 08:34] LABS: Glucose - Point of Care 142 mg/dl (70-99)
[2024-08-11 09:23] LABS: Glucose - Point of Care 95 mg/dl (70-99)
[2024-08-12 09:27] LABS: Glucose - Point of Care 112 mg/dl (70-99)
[2024-08-12 10:20] LABS: Glucose - Point of Care 98 mg/dl (70-99)
[2024-08-13 08:33] LABS: Glucose - Point of Care 244 mg/dl (70-99)
[2024-08-13 09:31] LABS: Glucose - Point of Care 111 mg/dl (70-99)
[2024-08-18 08:44] LABS: Glucose - Point of Care 135 mg/dl (70-99)
[2024-08-18 09:43] LABS: Glucose - Point of Care 101 mg/dl (70-99)
[2024-08-20 08:37] LABS: Glucose - Point of Care 133 mg/dl (70-99)
[2024-08-20 09:36] LABS: Glucose - Point of Care 114 mg/dl (70-99)
== END 2024-08-27 23:59 | disposition home or self-care (01) ==
LOC: CRHB 08:59
PROVIDERS: ATTENDING PHYSICIAN Internal Medicine
DX: I25.10 Atherosclerotic heart disease of native coronary artery without angina pectoris (principal); I25.119 Atherosclerotic heart disease of native coronary artery with unspecified angina pectoris (principal); Z95.5 Presence of coronary angioplasty implant and graft
CPT/HCPCS: 82962; 93797; 93798

== ENCOUNTER 2024-09-24 08:37 | Outpatient (RCR) | payer MEDICARE, BC, SELFPAY | END 2024-09-24 23:59 | disposition home or self-care (01) | LOC: CRHB 08:37 | PROVIDERS: ATTENDING PHYSICIAN Internal Medicine; FAMILY PHYSICIAN Family Medicine | DX: I25.10 Atherosclerotic heart disease of native coronary artery without angina pectoris (principal); Z95.5 Presence of coronary angioplasty implant and graft | CPT/HCPCS: 93797; 93798 ==

== ENCOUNTER 2024-10-08 16:09 | Outpatient (RCR) | payer MEDICARE, BC, SELFPAY | END 2024-10-08 16:10 | disposition home or self-care (01) | LOC: CRHB 16:09 | PROVIDERS: ATTENDING PHYSICIAN Internal Medicine; FAMILY PHYSICIAN Family Medicine | DX: I25.10 Atherosclerotic heart disease of native coronary artery without angina pectoris (principal); Z95.5 Presence of coronary angioplasty implant and graft | CPT/HCPCS: 93797; 93798 ==

== ENCOUNTER → 2024-12-24 09:27 | Outpatient (REF) | payer MEDICARE, BC, SELFPAY | LOC: RCS 09:27 | PROVIDERS: ATTENDING PHYSICIAN Internal Medicine; FAMILY PHYSICIAN Family Medicine | DX: I49.3 Ventricular premature depolarization (principal); I25.10 Atherosclerotic heart disease of native coronary artery without angina pectoris | CPT/HCPCS: 93225; 93226 ==

== ENCOUNTER → 2025-01-16 08:24 | Outpatient (REF) | payer MEDICARE, BC, SELFPAY | LOC: RCS 08:24 | PROVIDERS: ATTENDING PHYSICIAN Internal Medicine; FAMILY PHYSICIAN Family Medicine | DX: I49.3 Ventricular premature depolarization (principal); I25.10 Atherosclerotic heart disease of native coronary artery without angina pectoris; I10 Essential (primary) hypertension; E78.00 Pure hypercholesterolemia, unspecified | CPT/HCPCS: 93306 ==

== ENCOUNTER → 2025-01-26 07:06 | Outpatient (REF) | payer MEDICARE, BC, SELFPAY | LOC: HWRCS 07:06 | PROVIDERS: ATTENDING PHYSICIAN Internal Medicine; FAMILY PHYSICIAN Family Medicine | DX: I25.10 Atherosclerotic heart disease of native coronary artery without angina pectoris (principal); I49.3 Ventricular premature depolarization; I10 Essential (primary) hypertension; E78.00 Pure hypercholesterolemia, unspecified | CPT/HCPCS: 78452; 93017; A9500 ==